=== PATIENT | male | born 1975 | race Caucasian/White ===

== ENCOUNTER 2024-05-22 10:03 | Inpatient (IN) | payer OTHER ==
[2024-05-22 10:49] LABS: Troponin I Less than 0.010 ng/mL (< 0.028)
[2024-05-22] MEDS ORDERED: Acetaminophen 500 MG TAB ONE (10:53)
[2024-05-22 11:47] LABS: Amphetamine Not Detected (NotDetected); Barbiturates Screen Not Detected (NotDetected); Benzodiazepine Screen Not Detected (NotDetected); Cocaine Metabolite Screen Not Detected (NotDetected); Methadone Not Detected (NotDetected); Methamphetamine Not Detected (NotDetected); Opiate Screen Detected (NotDetected); Oxycodone Screen Not Detected (NotDetected); Phencyclidine (PCP) Not Detected (NotDetected); THC/Cannabinoid Screen Not Detected (NotDetected); Tricyclic Screen Not Detected (NotDetected)
[2024-05-22] MEDS ORDERED: Nitroglycerin 0.4 MG TAB (25 Tab Bottle) SL PRN (12:16)
[2024-05-22 13:54] LABS: Troponin I Less than 0.010 ng/mL (< 0.028)
[2024-05-22 17:45] LABS: Troponin I Less than 0.010 ng/mL (< 0.028)
[2024-05-22] MEDS: DULoxetine 60 MG CAP PO SCH (21:08)
[2024-05-22] MEDS: Amlodipine 5 MG TAB PO SCH (21:08)
[2024-05-22] MEDS: Lisinopril 20 MG TAB PO SCH (21:08)
[2024-05-22] MEDS: Gabapentin 300 MG CAP PO SCH (21:08)
[2024-05-22] MEDS: Atorvastatin Calcium 40 MG TAB PO SCH (21:08)
[2024-05-23] MEDS ORDERED: Amlodipine 5 MG TAB PO SCH (09:00)
[2024-05-23] MEDS ORDERED: Lisinopril 20 MG TAB PO SCH (09:00)
[2024-05-23] MEDS ORDERED: Atorvastatin Calcium 40 MG TAB PO SCH (09:00)
[2024-05-23] MEDS ORDERED: Gabapentin 300 MG CAP PO SCH (09:00)
[2024-05-23] MEDS ORDERED: Regadenoson 0.4 MG/5 ML SYRINGE ONE (09:12)
[2024-05-23] MEDS: Aspirin Chewable 81 MG TAB PO SCH (11:02)
[2024-05-23] MEDS: Hydrochlorothiazide 25 MG TAB PO SCH (11:03)
[2024-05-23] MEDS: Pantoprazole DR 40 MG TAB PO SCH (11:04)
[2024-05-23] MEDS: Lidocaine 4% Patch TD SCH (11:04)
[2024-05-23] MEDS: HYDROcodone/Acetaminophen 10/325 mg Tablet PO PRN (13:28)
[2024-05-23 13:30] LABS: Magnesium 1.9 mg/dL (1.6-2.6)
[2024-05-23 14:49] VITALS: BMI 31.4
[2024-05-23] MEDS: Transdermal Patch Removal TOP SCH (15:13)
[2024-05-23] MEDS: Magnesium 2 GM/50 ML(in water) 2 GM in Premix 1 BAG IVPB SCH (20:46)
[2024-05-24 05:37] LABS: Cardiac Risk 3.3 (Less than 4.5)
[2024-05-24] MEDS ORDERED: Communication Order-Pharmacy FS SCH (06:15)
[2024-05-24] MEDS: Sodium Chloride 0.9% 1,000 ML IV SCH ×2 (06:36→14:25)
[2024-05-24] MEDS: FLU (Fluarix Triv) TS24-25(6MOS UP)/PF 45 MCG/0.5 ML Syringe IM ONE (09:51)
[2024-05-24] MEDS: Cyclobenzaprine 10 MG TAB PO PRN (11:06)
[2024-05-24] MEDS ORDERED: fentaNYL 50 mcg/mL 1 mL Vial ONE (12:50)
[2024-05-24] MEDS ORDERED: Adenosine 6 mg (2 mL) VIAL ONE (12:50)
[2024-05-24] MEDS ORDERED: Midazolam HCl 2 mg/2 ml Vial ONE (12:51)
[2024-05-24] MEDS ORDERED: Heparin 10,000 UNITS/ 10 ML VIAL ONE (12:51)
[2024-05-24] MEDS ORDERED: Atropine Sulfate 1 mg/10 ml Syringe ONE (12:51)
[2024-05-24] MEDS ORDERED: PHENYLEPHRINE-NS 100 MCG/ML 10 ML SYRINGE ONE (12:51)
[2024-05-24] MEDS ORDERED: Nitroglycerin 50 MG/250 ML BOT 250 ML ONE (12:51)
[2024-05-24] MEDS ORDERED: Verapamil 5 MG/2 ML VIAL ONE (12:51)
[2024-05-24] MEDS ORDERED: Acetaminophen/Codeine 30-300mg Tablet PO PRN (14:09)
[2024-05-24] MEDS ORDERED: Nitroglycerin 0.4 MG TAB (25 Tab Bottle) SL PRN (14:09)
[2024-05-24] MEDS ORDERED: Sodium Chloride 0.9% 200 ML IV PRN (14:09)
[2024-05-24] MEDS: Acetaminophen/Codeine 30-300mg Tablet PO PRN (22:23)
[2024-05-25 08:10] VITALS: BP 120/61; TEMP 98.4
== END 2024-05-25 11:45 | disposition home or self-care (01) | DRG 287 ==
LOC: ERS 10:03 → ERHOLD 10:52 → 2NO 16:57 → OBSVTOIN 05-24 11:04
PROVIDERS: ADMIT Internal Medicine; ATTEND Internal Medicine
PROC: 4A023N7 Measurement of Cardiac Sampling and Pressure, Left Heart, Percutaneous Approach (ICD-10-PCS; principal; 2024-05-24)
PROC: B2111ZZ Fluoroscopy of Multiple Coronary Arteries using Low Osmolar Contrast (ICD-10-PCS; 2024-05-24)
PROC: B2151ZZ Fluoroscopy of Left Heart using Low Osmolar Contrast (ICD-10-PCS; 2024-05-24)
DX: R07.89 Other chest pain (principal); K21.9 Gastro-esophageal reflux disease without esophagitis; E78.5 Hyperlipidemia, unspecified; I10 Essential (primary) hypertension; Z90.49 Acquired absence of other specified parts of digestive tract; Z98.890 Other specified postprocedural states; F32.A Depression, unspecified; Z82.49 Family history of ischemic heart disease and other diseases of the circulatory system; Z79.82 Long term (current) use of aspirin; Z79.899 Other long term (current) drug therapy; E66.9 Obesity, unspecified; Z68.31 Body mass index [BMI] 31.0-31.9, adult; R74.01 Elevation of levels of liver transaminase levels; G89.4 Chronic pain syndrome; E83.42 Hypomagnesemia
CPT/HCPCS: 36415; 78452; 80061; 80306; 83735; 84443; 93005; 93017; 93458; 94760; 96374; 99152; A9502; C1769; C1894; G0378; J0153; J0461; J1644; J2250; J2785; J3010; J3475; J7030